=== PATIENT | female | born 1960 | race Hispanic/Latino ===

== ENCOUNTER 2017-04-30 19:01 | Emergency (ER) | payer OTHER ==
[~2017-04-30] VITALS: Ht 170.2 cm; Wt 101.7 kg
[~2017-04-30 19:01] MED LIST: ALBUTEROL SULF8.5 GM IH; ATORVASTATIN CA20 MG PO; CELEXA20 MG PO; DILTIAZEM 24HR240 MG PO; FLEXERIL10 MG PO; HYDROCHLOROTHIA50 MG PO; IBUPROFEN800 MG PO; LISINOPRIL20 MG PO; LISINOPRIL40 MG PO; LISINOPRIL5 MG PO; LOVASTATIN40 MG PO; MICRO-K10 ME2 PO; MICROZIDE12.5 M1 PO; MOTRIN800 MG PO; NORCO 5/3251 TABLET PO; NORVASC10 MG PO; PERCOCET 5/31 TABLET PO; PROAIR HFA8.5 GM IH
[2017-04-30] MEDS ORDERED: NORCO 5/3251 TABLET PO (20:34)
[2017-04-30 21:19] VITALS: BP 160/75
== END 2017-04-30 21:22 | disposition home or self-care (01) ==
LOC: EME 19:01
PROC: 2W3DX1Z Immobilization of Left Lower Arm using Splint (ICD-10-PCS; principal; 2017-04-30)
DX: S52.502A Unspecified fracture of the lower end of left radius, initial encounter for closed fracture (principal); W01.0XXA Fall on same level from slipping, tripping and stumbling without subsequent striking against object, initial encounter; I10 Essential (primary) hypertension; J45.909 Unspecified asthma, uncomplicated; F17.200 Nicotine dependence, unspecified, uncomplicated; Y93.01 Activity, walking, marching and hiking
CPT/HCPCS: 73110; 99281; 99283